=== PATIENT | female | born 1995 | race Caucasian/White ===

== ENCOUNTER 2018-10-01 10:10 | Inpatient (IN) | payer BC ==
[~2018-10-01] VITALS: Ht 162.6 cm; Wt 66.1 kg
[2018-10-01 10:37] VITALS: Ht 162.6 cm; Wt 66.1 kg
[2018-10-01 10:38] VITALS: BP 103/55; PULSE 94
[2018-10-01] MEDS ORDERED: PNV11TAB PO (10:40)
[2018-10-01] MEDS ORDERED: CARBOPROST 250 MCG INJ IM PRN ×2 (13:30→17:00)
[2018-10-01] MEDS ORDERED: METHYLERGONOVINE 0.2 MG INJ IM PRN ×2 (13:30→17:00)
[2018-10-01] MEDS ORDERED: MISOPROSTOL 200 MCG TAB PR PRN ×2 (13:30→17:00)
[2018-10-01] MEDS ORDERED: OXYTOCIN 30 UNITS/LR 500 ML IV PRN ×2 (13:30→17:00)
[2018-10-01] MEDS ORDERED: CEFAZOLIN 2 GM/50 ML (PMX) 50 ML IVPB SCH (13:30)
[2018-10-01] MEDS ORDERED: CITRIC ACID/NA CITRATE 30 ML CUP ONE (13:44)
[2018-10-01] MEDS ORDERED: ONDANSETRON 4 MG INJ ONE (13:45)
--- NOTE | 2018-10-01 13:48 | PERINOTE ---
Date/Time of Note Date/Time of Note DATE: 10/01/18 TIME: 13:46 OB Subjective Free Text/Dictaton Contacted by Dr. Neri regarding patient. Patient is with 24w5d gestation presenting with lower abdominal pain and found to be completely dilated and effaced with bulging membranes and fetus is in breech presentation with foot in vagina. Recommended to Dr. Neri that she proceed with delivery. Current Medications Current Medications Lactated Ringer's 1,000 ml @ 125 mls/hr Q8H IV ; Start 10/01/18 at 13:25 Cefazolin Sodium/ Dextrose 50 ml @ 100 mls/hr ONCE IVPB ; Start 10/01/18 at 13:30 Oxytocin/Lactated Ringer's 500 ml @ 0 mls/hr ONCE PRN IV .VAGINAL BLEEDING; Sta rt 10/01/18 at 13:30 Methylergonovine Maleate (Methergine) 0.2 mg ONCE PRN IM .VAGINAL BLEEDING; Sta rt 10/01/18 at 13:30 Carboprost Tromethamine (Hemabate) 250 mcg ONCE PRN IM .VAGINAL BLEEDING; Start 10/01/18 at 13:30 Misoprostol (Cytotec) 1,000 mcg ONCE PRN [place] .VAGINAL BLEEDING; Start 10/01/18 at 13:30 OB Admission Exam Physical Exam Vitals: Vital Signs Date Temp Pulse Resp B/P (MAP) Pulse Ox O2 O2 Flow FiO2 Time Delivery Rate 10/01/18 98.2 94 103/55 10:38 (71) Last 72 hours Lab Results CBC & BMP 10/01/18 11:37 Liver Function Test 10/01/18 11:37 Alanine Aminotransferase (ALT/SGPT) 19 Albumin 3.4 Alkaline Phosphatase 69 Aspartate Amino Transf (AST/SGOT) 14 L Direct Bilirubin 0.00 Total Protein 6.4 CONCHITA LOPEZ MD Oct 01, 2018 13:48
--- NOTE | 2018-10-01 13:48 | PREAC ---
Date/Time of Note Date/Time of Note DATE: 10/01/18 TIME: 13:46 Anesthesia Eval and Record Evaluation Time Pre-Procedure Interview DATE: 10/01/18 TIME: 13:46 Age 23 Sex female NPO: 6 hrs Preoperative diagnosis Premature labor, footling, GA:24 wk Planned procedure Past Medical History Past Medical History: Includes Heme: Anemia : : (2), Para: (0), Gestational age: (24) Surgery & Anesthesia Issues No known issue Meds Anticoagulation: No Beta Hola within 24 hr: No Reason Beta Hola not given: Pt. not on B-Hola Reported Medications [id number] ( 19) 1 Each Tablet, 1 TAB PO DAILY, TAB 10/01/18 Current Medications Lactated Ringer's 1,000 ml @ 125 mls/hr Q8H IV ; Start 10/01/18 at 13:25 Cefazolin Sodium/ Dextrose 50 ml @ 100 mls/hr ONCE IVPB ; Start 10/01/18 at 13:30 Oxytocin/Lactated Ringer's 500 ml @ 0 mls/hr ONCE PRN IV .VAGINAL BLEEDING; Start 10/01/18 at 13:30 Methylergonovine Maleate (Methergine) 0.2 mg ONCE PRN IM .VAGINAL BLEEDING; Start 10/01/18 at 13:30 Carboprost Tromethamine (Hemabate) 250 mcg ONCE PRN IM .VAGINAL BLEEDING; Start 10/01/18 at 13:30 Misoprostol (Cytotec) 1,000 mcg ONCE PRN [place] .VAGINAL BLEEDING; Start 10/01/18 at 13:30 Meds reviewed: Yes Allergies Coded Allergies: No Known Allergy (Unverified , 10/01/18) Allergies Reviewed: Yes Labs/Studies Labs Reviewed: Reviewed by anesthesiologist Result Diagram: 10/01/18 1137 10/01/18 1137 Laboratory Tests 10/01/18 11:37 test: Positive Studies: ECG (n/a), CXR (n/a) Pre-procedure Exam Last vitals Vital Signs Date Temp Pulse Resp B/P (MAP) Pulse Ox O2 O2 Flow FiO2 Time Delivery Rate 10/01/18 98.2 94 103/55 10:38 (71) Airway: Adequate mouth opening, Adequate thyromental dist Mallampati: Mallampati II Teeth: Normal Lung: Normal Heart: Normal ASA Physical Status ASA physical status: 2 Emergency: E Planned Anesthetic Neuraxial: Spinal Planned Pain Management Sub-arachniod narcotics, Parenteral pain med Pre-operative Attestations Prior to commencing anesthesia and surgery, the patient was re-evaluated, there was verification of: *The patient's identity *The results of appropriate recent lab work and preoperative vital signs *The above evaluation not changing prior to induction *Anesthetic plan, risk benefits, alternative and complications discussed with p atient/family; questions answered; patient/family understands, accepts and wishes to proceed. HU HOUSE MD Oct 01, 2018 13:48
[2018-10-01] MEDS: LACTATED RINGER'S 1,000 ML IV SCH ×2 (13:49→14:09)
[2018-10-01] MEDS ORDERED: OXYTOCIN 30 UNITS/LR 500 ML BAG IV ONE (13:50)
[2018-10-01] MEDS ORDERED: EPHEDrine 25 MG/5 ML SYG ONE (13:50)
[2018-10-01] MEDS ORDERED: PHENYLephrine (100 MCG/ML) 10ML SYG ONE (13:51)
[2018-10-01] MEDS ORDERED: morphine SULFATE/PF (10 MG/10 ML) INJ ONE (13:51)
[2018-10-01] MEDS ORDERED: OXYTOCIN 10 UNIT INJ ONE (13:51)
[2018-10-01] MEDS ORDERED: ONDANSETRON 4 MG INJ IV ONE (14:00)
[2018-10-01] MEDS ORDERED: CITRIC ACID/NA CITRATE 30 ML CUP PO ONE (14:00)
[2018-10-01] MEDS ORDERED: METOCLOPRAMIDE 10 MG INJ ONE (15:01)
[2018-10-01] MEDS ORDERED: DEXAMETHASONE 4 MG/ML 1 ML INJ ONE (15:01)
[2018-10-01] MEDS ORDERED: KETOROLAC 30 MG INJ ONE (15:01)
[2018-10-01] MEDS ORDERED: KETOROLAC 30 MG INJ IV PRN (15:30)
[2018-10-01] MEDS ORDERED: NALBUPHINE HCL (10 MG/1 ML) INJ IV PRN (15:30)
[2018-10-01] MEDS ORDERED: EPHEDrine 25 MG/5 ML SYG IV PRN (15:30)
[2018-10-01] MEDS ORDERED: DIPHENHYDRAMINE 50 MG INJ IV PRN ×2 (15:30)
[2018-10-01] MEDS ORDERED: ACETAMINOPHEN 500 MG TAB PO PRN (15:30)
[2018-10-01] MEDS ORDERED: HYDROmorphONE 0.5 MG/0.5 ML SYG IV PRN ×2 (15:30)
[2018-10-01] MEDS ORDERED: METOCLOPRAMIDE 10 MG INJ IV PRN (15:30)
[2018-10-01] MEDS ORDERED: NALOXONE (0.4 MG/ML) INJ IV PRN (15:30)
[2018-10-01] MEDS ORDERED: FENTAnyl 50 MCG/ML VIAL IV PRN ×2 (15:30)
[2018-10-01] MEDS ORDERED: HYDROmorphONE 1 MG/5 ML IV SYRINGE IV PRN ×2 (15:30)
[2018-10-01] MEDS ORDERED: morphine 2 MG INJ IV PRN ×2 (15:30)
[2018-10-01] MEDS ORDERED: OXYCODONE/ACETAMINOPHEN (5/325) TAB PO PRN (15:30)
[2018-10-01] MEDS ORDERED: HYDROCODONE/APAP (5/325) TAB PO PRN (15:30)
[2018-10-01] MEDS ORDERED: MEPERIDINE 25 MG INJ IV PRN (15:30)
[2018-10-01] MEDS ORDERED: ONDANSETRON 4 MG INJ IV PRN ×2 (15:30)
--- NOTE | 2018-10-01 16:18 | PREOPHP ---
DATE OF ADMISSION: 10/01/2018 HISTORY OF PRESENT ILLNESS: This is a 23-year-old lady, 2, para 0, EDC of 01/14/2019 at 24 a nd 5/7 weeks, admitted to labor and delivery area because of lower abdominal pain. [facility] and the care was uneventful. PAST PERSONAL HISTORY: No history of diabetes, TB, asthma. ALLERGIES: NO ALLERGIES. SOCIAL HISTORY: The patient does not smoke. She does not drink. MEDICATIONS: She does not take any drugs except her: 1. Iron. 2. Vitamins. GYNECOLOGIC HISTORY: She had menarche at the age of 12, every 28 days interval, 3 to 4 days duration and moderate in amount. FAMILY HISTORY: Noncontributory. OBSTETRICAL HISTORY: She is 2, para 0. She had 1 , first trimester in 2016. REVIEW OF SYSTEMS: CARDIOVASCULAR: No chest pains. RESPIRATORY: No cough. GASTROINTESTINAL: No diarrhea. No vomiting. GENITOURINARY: No dysuria. PHYSICAL EXAMINATION: GENERAL: Reveals a conscious, coherent lady and in no acute distress. VITAL SIGNS: Her blood pressure 100/70, pulse rate 80 per minute, respirations 16 per minute. BREASTS, HEART AND LUNGS: Within normal limits. ABDOMEN: Soft. Fundic height is 24 cm. heart tones are 140 per minute and on the right upper quadrant of the abdomen. PELVIC: Revealed the cervix to be completely dilated with a foot in the vagina. Bag of water was bu lging. EXTREMITIES: No pedal edema. ADMITTING DIAGNOSIS: A 24 and 5/7 weeks intrauterine in active labor. The ultrasound showed footling breech with a completely dilated cervix and Dr. Capone was consulted abo ut the patient. Dr. Capone advised the patient to have as soon as possible. The procedures were explained to the patient and to her partner and both understood everything totally. The risks, benefits and alternatives were discussed with them as well. Dictated By: ERICA CALLAHAN/MARIANO Conf#: [id number] DID#: [id number]
[2018-10-01] MEDS ORDERED: LACTATED RINGER'S 1,000 ML IV SCH (16:40)
[2018-10-01] MEDS ORDERED: OXYTOCIN 30 UNITS/LR 500 ML IV SCH (16:40)
--- NOTE | 2018-10-01 16:40 | OPPN ---
Date/Time of Note Date/Time of Note DATE: 10/01/18 TIME: 16:34 Operative Report Planned Procedure Procedure date Oct 01, 2018 Procedure(s) primary Performed by see signature line Padded Products Inspector Trimmer: NIKOLAY KEEN MD 2nd Padded Products Inspector Trimmer none Pre-procedure diagnosis 24weeks and 5/7 foothling breech [id number] Anesthesia Type: [id number] spinal Post-Procedure Post-procedure diagnosis 24weeks and 5/7 foothling breech hand presentation cord around the neckx 3 Findings Live girl. Estimated Blood Loss: 500 - 600 mls Specimen(s) placenta Grafts/Implant(s) none Complication(s) none ERICA CALL MD Oct 01, 2018 16:40
[2018-10-01] MEDS ORDERED: METHYLERGONOVINE 0.2 MG TAB PO PRN (17:00)
[2018-10-01] MEDS ORDERED: LANOLIN HPA 1 PKT TOP PRN (17:00)
[2018-10-01 18:30] VITALS: BP 112/66; PULSE 108; RESP 18
[2018-10-01 20:00] VITALS: BP 103/63; PULSE 101; RESP 18
[2018-10-01] MEDS: SENNA/DOCUSATE NA (8.6MG/50MG) TAB PO SCH (21:25)
--- NOTE | 2018-10-01 22:57 | OPR ---
DATE OF OPERATION: 10/01/2018 PREOPERATIVE DIAGNOSIS: A 24 and 5/7 weeks intrauterine in active labor, footling breech p resentation. POSTOPERATIVE DIAGNOSIS: A 24 and 5/7 weeks intrauterine in active labor, footling breech presentation, plus hand presentation. SURGEON: Erica Neri M.D. CARGO WORKER: Dr. Jaquez ANESTHESIA: Spinal. ANESTHESIOLOGIST: Alexi Hernández M.D. OPERATION PERFORMED: Primary low transverse section and a primary low transverse s ection, complete breech extraction and delivery. OPERATIVE TECHNIQUE: Under spinal anesthesia, the patient was prepped and draped in the usual fashio n for abdominal surgery. After checking for the effect of the anesthesia, Pfannenstiel incision, 10 cm skin incision was performed. The incision was carried from the skin up to the fascia. Upon openi ng the skin up to the fascia, the small blood vessels were noted to be oozing and these were all caut erized. Fascia was opened transversely followed by splitting the muscles vertically and the peritone al vertically. Upon opening the abdominal cavity, the lower uterine segment was noted to be seen and stretched out. So at this point, it was decided even the EDC is 24 and 5/7 week because the lower u terine segment was thinned out, so a transverse incision was performed on the uterus so an incision w as performed from the serosa up to the endometrium on the lower uterine segment and the zi was mack ied sideways with the aid of my 2 fingers. As soon as the abdomen was opened, the placenta was noted to be anterior. So I was cutting through the placenta as well. Then my left hand was inserted in t he lower segment of the uterus and the bag of water was ruptured. Both hands and feet were noted to be coming out, but the groin were noted to be presenting. So, both hands and feet were noted and wit h good fundal pressure, the baby was delivered with the hand and the feet together and by putting my finger inside the uterus delivered the baby's head without difficulty. Then, after the baby was born , the baby's cord was clamped right away and baby was handed to the NICU team. Cord segment was obta ined for blood gases. Then, cord blood was tried to be obtained, but there was none noted. Then the placenta was delivered manually and complete. The uterus was exteriorized. The uterus was cleansed with wet lap sponge to make sure that no membranes were left behind. After correct sponge cou nt, the uterus was closed in the usual fashion using #1 chromic for the first layer, continuous locki ng suture was used followed by #1 chromic for the second layer, imbricating sutures were used. Bleed ers were checked, and there was no bleeding noted. After checking for any bleeders in which there we re none, both tubes and ovaries were inspected. They were healthy looking. The back of the uterus w as checked for any hematoma and there was none noted. The uterus was put back to the pelvic cavity. Once again, uterine incision was checked for any bleeders and there was no bleeding noted. After co rrect sponge count, needle count and instrument count as confirmed by the contract technical writer and rubber washer, the abdomen was closed in the usual fashion using 0 Vicryl for the peritoneum, 0 Vicryl for the muscl es, for the fascia 0 Vicryl continuous stitch was used followed by few [id number] sutures for th e subcutaneous tissue, it was closed with 3-0 Vicryl and the skin was closed with 3-0 Vicryl, subcuti cular suture was used. The patient tolerated the procedure well. Estimated blood loss about 600 mL. Vital signs were stable during and after the procedure. She delivered a baby girl at 1440 p.m. , weighing 810 grams, 1 pound 10 ounces, Apgars 3, 6, and 9. There were 3 loops of tight cord around the baby's neck that needs to be released after the baby was delivered. As mentioned, the lo wer uterine segment was noted to be thinned out. Dictated By: ERICA CALLAHAN/MARIANO Conf#: [id number] DID#: [id number]
[2018-10-02] VITALS: BP 100/59; PULSE 83; RESP 18
[2018-10-02 04:00] VITALS: BP 90/54; PULSE 81; RESP 18
[2018-10-02 07:50] VITALS: BP 87/54; PULSE 85; RESP 17
[2018-10-02] MEDS ORDERED: LACTATED RINGER'S 1,000 ML IV SCH (08:00)
[2018-10-02] MEDS: SENNA/DOCUSATE NA (8.6MG/50MG) TAB PO SCH ×2 (08:49→23:40)
[2018-10-02] MEDS ORDERED: HYDROCODONE/APAP (5/325) TAB PO PRN (09:30)
[2018-10-02] MEDS: IBUPROFEN 800 MG TAB PO PRN ×2 (14:54→23:40)
[2018-10-02 16:01] VITALS: BP 95/52; PULSE 96; RESP 18
--- NOTE | 2018-10-02 18:38 | PN ---
Date/Time of Note Date/Time of Note DATE: 10/02/18 TIME: 18:36 Assessment/Plan VTE Prophylaxis Risk score (from Ns)>0 risk: 3 SCD applied (from [facility] [place]): No SCD contraindicated: low risk/ambulating Pharmacological prophylaxis: NA/contraindicated Pharm contraindication: low risk/ambulating Lines/Catheters IV Catheter Type (from Rust): Peripheral IV Assessment/Plan Assessment/Plan POSTCSECTION DAY 1 ORDERED ADVANCE DIET TOLERATED CBC ON 3RD POSTOP DAY Result Diagram: 10/02/18 0557 10/02/18 0557 Results 24hrs Laboratory Tests Test 10/02/18 05:57 10/02/18 06:24 White Blood Count 17.8 #H Red Blood Count 3.57 L Hemoglobin 11.6 L Hematocrit 33.9 L Mean Corpuscular Volume 95.0 Mean Corpuscular Hemoglobin 32.5 Mean Corpuscular Hemoglobin Concent 34.2 Red Cell Distribution Width 11.9 Platelet Count 186 Mean Platelet Volume 9.9 Immature Granulocytes % 0.400 Neutrophils % 81.1 H Lymphocytes % 12.0 L Monocytes % 6.2 Eosinophils % 0.1 Basophils % 0.2 Nucleated Red Blood Cells % 0.0 Immature Granulocytes # 0.070 H Neutrophils # 14.4 H Lymphocytes # 2.1 Monocytes # 1.1 H Eosinophils # 0.0 Basophils # 0.0 Nucleated Red Blood Cells # 0.0 Sodium Level 135 Potassium Level 4.4 Chloride Level 105 Carbon Dioxide Level 25 Anion Gap 5 Blood Urea Nitrogen 7 Creatinine 0.51 Est Glomerular Filtrat Rate mL/min > 60 Glucose Level 80 Calcium Level 8.8 Lab Scanned Report REFERENCE LAB Subjective 24 Hr Interval Summary Free Text/Dictation POST CSECTION DAY 1 COMPLAIN OF INCISIONAL PAINS GOOD URINE OUTPUT PASSING GAS PER RECTUM NO BOWEL MOVEMENT YET Exam/Review of Systems Exam Vitals Vital Signs Date Temp Pulse Resp B/P (MAP) Pulse Ox O2 O2 Flow FiO2 Time Delivery Rate 10/02/18 98.0 96 18 95/52 (66) Room Air 16:01 10/02/18 100 07:50 Intake and Output 10/01/18 10/01/18 10/02/18 1515:00 23:00 07:00 IntakeIntake Total 1000 ml 650 ml OutputOutput Total 450 ml 600 ml BalanceBalance 1000 ml 200 ml -600 ml Exam VITAL SIGNS STABLE: YES AFEBRILE: YES BREAST NOT ENGORGED, NON-TENDER, NO APPRECIABLE MASS: YES LUNGS CLEAR, NO RALES, WHEEZES, RHONCHI: YES SINUS RHYTHM WITHOUT MURMUR: YES ABDOMEN: NON-TENDER FUNDUS: BELOW UMBILICUS BOWEL SOUNDS: PRESENT UTERUS: FIRM INCISION (CLEAN, DRY, AND INTACT): YES LOCHIA: LIGHT DEEP TENDON REFLEXES: 0 EXTREMITIES: NO CALF TENDERNESS EDEMA SCALE: NONE Results Results 24hrs Laboratory Tests Test 10/02/18 05:57 10/02/18 06:24 White Blood Count 17.8 #H Red Blood Count 3.57 L Hemoglobin 11.6 L Hematocrit 33.9 L Mean Corpuscular Volume 95.0 Mean Corpuscular Hemoglobin 32.5 Mean Corpuscular Hemoglobin Concent 34.2 Red Cell Distribution Width 11.9 Platelet Count 186 Mean Platelet Volume 9.9 Immature Granulocytes % 0.400 Neutrophils % 81.1 H Lymphocytes % 12.0 L Monocytes % 6.2 Eosinophils % 0.1 Basophils % 0.2 Nucleated Red Blood Cells % 0.0 Immature Granulocytes # 0.070 H Neutrophils # 14.4 H Lymphocytes # 2.1 Monocytes # 1.1 H Eosinophils # 0.0 Basophils # 0.0 Nucleated Red Blood Cells # 0.0 Sodium Level 135 Potassium Level 4.4 Chloride Level 105 Carbon Dioxide Level 25 Anion Gap 5 Blood Urea Nitrogen 7 Creatinine 0.51 Est Glomerular Filtrat Rate mL/min > 60 Glucose Level 80 Calcium Level 8.8 Lab Scanned Report REFERENCE LAB Medications Medication Current Medications Methylergonovine Maleate (Methergine) 0.2 mg Q6H PRN PO .VAGINAL BLEEDING; Start 10/01/18 at 17:00 Simethicone (Mylicon) 160 mg Q8H PRN PO .GAS; Start 10/01/18 at 17:00 Senna/Docusate Sodium (Senokot-S) 1 tab BID PO Last administered on 10/02/18at 08:49; Admin Dose 1 TAB; Start 10/01/18 at 21:00 Lanolin (Lanolin Hpa) 1 applic BEDSIDE MEDICATION PRN TOP .NIPPLES Last administered on 10/02/18at 17:30; Admin Dose 1 APPLIC; Start 10/01/18 at 17:00 Oxytocin/Lactated Ringer's 500 ml @ 0 mls/hr ONCE PRN IV .VAGINAL BLEEDING; Start 10/01/18 at 17:00 Methylergonovine Maleate (Methergine) 0.2 mg ONCE PRN IM .VAGINAL BLEEDING; Start 10/01/18 at 17:00 Carboprost Tromethamine (Hemabate) 250 mcg ONCE PRN IM .VAGINAL BLEEDING; Start 10/01/18 at 17:00 Misoprostol (Cytotec) 1,000 mcg ONCE PRN [place] .VAGINAL BLEEDING; Start 10/01/18 at 17:00 Ibuprofen (Motrin) 800 mg Q6H PRN PO MILD PAIN LEVEL 1-3 Last administered on 10/02/18at 14:54; Admin Dose 800 MG; Start 10/02/18 at 09:30 Acetaminophen/ Hydrocodone Bitart ([place] (5/325)) 1 tab Q4H PRN PO MODERATE PAIN LEVEL 4-6; Start 10/02/18 at 09:30 Acetaminophen/ Hydrocodone Bitart ([place] (5/325)) 2 tab Q4H PRN PO SEVERE PAIN LEVEL 7-10; Start 10/02/18 at 09:30 ERICA CALL MD Oct 02, 2018 18:38
[2018-10-02] MEDS: HYDROCODONE/APAP (5/325) TAB PO PRN (19:29)
[2018-10-02 19:50] VITALS: BP 107/60; PULSE 92; RESP 18
[2018-10-03 04:15] VITALS: BP 92/57; PULSE 70; RESP 18
[2018-10-03] MEDS: HYDROCODONE/APAP (5/325) TAB PO PRN (04:57)
[2018-10-03 07:30] VITALS: BP 89/51; PULSE 74; RESP 17
[2018-10-03] MEDS: SENNA/DOCUSATE NA (8.6MG/50MG) TAB PO SCH ×2 (09:12→21:00)
[2018-10-03] MEDS: IBUPROFEN 800 MG TAB PO PRN ×3 (11:37→23:29)
[2018-10-03] MEDS: MAGNESIUM HYDROXIDE 30ML CUP PO SCH ×2 (13:51→21:00)
[2018-10-03] MEDS: BISACODYL 10 MG SUPP PR SCH ×2 (13:51→21:00)
[2018-10-03 15:30] VITALS: BP 100/69; PULSE 78; RESP 18
--- NOTE | 2018-10-03 16:52 | PN ---
Date/Time of Note Date/Time of Note DATE: 10/03/18 TIME: 16:50 Assessment/Plan VTE Prophylaxis Risk score (from Nsg)>0 risk: 3 SCD applied (from Nsg): No SCD contraindicated: low risk/ambulating Pharmacological prophylaxis: NA/contraindicated Pharm contraindication: low risk/ambulating Lines/Catheters IV Catheter Type (from Nrsg): Peripheral IV Assessment/Plan Assessment/Plan POST CSECTION DAY 2 MOM AND DULCOLAX SUPPOSITORY HOME TOMORROW CBC TOMORROW COUNSELED INSTRUCTED PRESCRIPTION GIVEN FOR PAIN RETURN TO CLINIC IN 2 WEEKS CALL OFFICE IF THERE IS ANY PROBLEM OR CONCERN CONTINUE WITH VITAMINS OD AND FERROUS SULFATE 325MG PO TID DIET ADVISED Result Diagram: 10/02/18 0557 10/02/1857 Subjective 24 Hr Interval Summary Free Text/Dictation POST CSECTION DAY 2 NO BOWEL MOVEMENT GOOD URINE OUTPUT FEELS LESS INCISIONAL PAINS Exam/Review of Systems Exam Vitals Vital Signs Date Temp Pulse Resp B/P (MAP) Pulse Ox O2 O2 Flow FiO2 Time Delivery Rate 10/03/18 98.0 78 18 100/69 15:30 (79) 10/03/18 Room Air 07:30 10/02/18 100 07:50 Intake and Output 10/02/18 10/02/18 10/03/18 1515:00 23:00 07:00 IntakeIntake Total 2600 ml OutputOutput Total 2700 ml 650 ml BalanceBalance -100 ml -650 ml Exam VITAL SIGNS STABLE: YES AFEBRILE: YES BREAST NOT ENGORGED, NON-TENDER, NO APPRECIABLE MASS: YES LUNGS CLEAR, NO RALES, WHEEZES, RHONCHI: YES SINUS RHYTHM WITHOUT MURMUR: YES ABDOMEN: NON-TENDER FUNDUS: BELOW UMBILICUS BOWEL SOUNDS: PRESENT UTERUS: FIRM INCISION (CLEAN, DRY, AND INTACT): YES LOCHIA: LIGHT DEEP TENDON REFLEXES: 0 EXTREMITIES: NO CALF TENDERNESS EDEMA SCALE: NONE Medications Medication Current Medications Methylergonovine Maleate (Methergine) 0.2 mg Q6H PRN PO .VAGINAL BLEEDING; Start 10/01/18 at 17:00 Simethicone (Mylicon) 160 mg Q8H PRN PO .GAS; Start 10/01/18 at 17:00 Senna/Docusate Sodium (Senokot-S) 1 tab BID PO Last administered on 10/03/18 09:12; Admin Dose 1 TAB; Start 10/01/18 at 21:00 Lanolin (Lanolin Hpa) 1 applic BEDSIDE MEDICATION PRN [place] .NIPPLES Last administered on 10/02/18at 17:30; Admin Dose 1 APPLIC; Start 10/01/18 at 17:00 Oxytocin/Lactated Ringer's 500 ml @ 0 mls/hr ONCE PRN IV .VAGINAL BLEEDING; Start 10/01/18 at 17:00 Methylergonovine Maleate (Methergine) 0.2 mg ONCE PRN IM .VAGINAL BLEEDING; Start 10/01/18 at 17:00 Carboprost Tromethamine (Hemabate) 250 mcg ONCE PRN IM .VAGINAL BLEEDING; Start 10/01/18 at 17:00 Misoprostol (Cytotec) 1,000 mcg ONCE PRN [place] .VAGINAL BLEEDING; Start 10/01/18 at 17:00 Ibuprofen (Motrin) 800 mg Q6H PRN PO MILD PAIN LEVEL 1-3 Last administered on 10/03/18at 11:37; Admin Dose 800 MG; Start 10/02/18 at 09:30 Acetaminophen/ Hydrocodone Bitart ([place] (5/325)) 1 tab Q4H PRN PO MODERATE PAIN LEVEL 4-6 Last administered on 10/03/18 04:57; Admin Dose 1 TAB; Start 10/02/18 at 09:30 Acetaminophen/ Hydrocodone Bitart ([place] (5/325)) 2 tab Q4H PRN PO SEVERE PAIN LEVEL 7-10; Start 10/02/18 at 09:30 Magnesium Hydroxide (Milk Of Mag) 30 ml BID PO Last administered on 10/03/18 13:51; Admin Dose 30 ML; Start 10/03/18 at 14:00; Stop 10/03/18 at 21:01 Bisacodyl (Dulcolax Supp) 10 mg BID [place] Last administered on 10/03/18 13:51; Admin Dose 10 MG; Start 10/03/18 at 14:00; Stop 10/03/18 at 21:01 ERICA CALL MD Oct 03, 2018 16:52
[2018-10-03 19:30] VITALS: BP 114/54; PULSE 91; RESP 18
[2018-10-04 04:21] VITALS: BP 91/55; PULSE 69; RESP 17
[2018-10-04] MEDS: IBUPROFEN 800 MG TAB PO PRN ×2 (06:11→15:46)
[2018-10-04] MEDS: SENNA/DOCUSATE NA (8.6MG/50MG) TAB PO SCH (08:09)
[2018-10-04 08:28] VITALS: BP 99/63; PULSE 85; RESP 17
[2018-10-04] MEDS ORDERED: DIPHTH/TET/ACEL PERTUSS (ADULT) 0.5 ML VIAL IM* ONE (09:00)
[2018-10-04] MEDS ORDERED: MEASLES,MUMPS,RUBELLA VACCINE INJ SC* ONE (09:00)
[2018-10-04 15:50] VITALS: BP 113/76; PULSE 78; RESP 18
--- NOTE | 2018-10-05 17:49 | DELSUM ---
Delivery Summary A-C Datetime Report Generated by CPN: 10/05/2018 17:49 DELIVERY PERSONNEL Extract Wringer: Renata Vazquez MATERNAL INFORMATION Delivery Anesthesia: Spinal Medications in Delivery: 30 UNITS OF PIT IN 500 CC LR Delivery QBL (ml): 500 Placenta Cultured: Yes Maternal Complications: Other Other Maternal Complications: Dr. Sams (roll edge machine operator) Dominic Mora RN, RN Comments: 24.5 CAME IN COMPLETE LABOR SUMMARY EDC: 01/16/2019 00:00 No. Babies in Womb: 1 Attempted: No Labor Anesthesia: None LABOR INFORMATION Reason for Induction: Not Applicable Group B Beta Strep: Positive Antibiotics # of Doses: ancef 2 grams/Zithromax Antibiotics Time of Last Dose: 10/01/2018 14:02 Steroids Given: None Reason Steroids Not Administered: Not Applicable MEMBRANES Membranes Rupture Method: Artificial Rupture of Membranes: 10/01/2018 14:38 Length of Rupture (hr): 0.03 Amniotic Fluid Color: Clear Amniotic Fluid Amount: Moderate Amniotic Fluid Odor: None STAGES OF LABOR Stage 3 hr: 0 Stage 3 min: 2 CSECTION DELIVERY Primary Indication: Breech Presentation Secondary Indication: N/A CSection Urgency: Emergency CSection Incidence: Primary Labor: Labor Elective: Nonelective CSection Incision: Lower Uterine Transverse BABY A INFORMATION Infant Delivery Date/Time: 10/01/2018 14:40 Method of Delivery: Born in Route : No : N/A Forceps: N/A Vacuum Extraction: N/A Shoulder Dystocia : N/A SHOULDER DYSTOCIA BABY A Infant Delivery Date/Time: 10/01/2018 14:40 PRESENTATION/POSITION BABY A Presentation: Breech Cephalic Presentation: N/A Breech Presentation: Double Footling PLACENTA INFORMATION BABY A Placenta Delivery Time : 10/01/2018 14:42 Placenta Method of Delivery: Manual Removal Placenta Status: Delivered SCORES BABY A Heart Rate 1 min: >100 bpm Resp Effort 1 min: Absent Reflex Irritability 1 min: No Response Muscle Tone 1 min: Some Flexion of Extrem Color 1 min: Blue/Pale Resuscitation Effort 1 min: PPV/NCPAP SCORE 1 MIN: 3 Heart Rate 5 min: >100 bpm Resp Effort 5 min: Slow, Irregular Reflex Irritability 5 min: Grimace Muscle Tone 5 min: Some Flexion of Extrem Color 5 min: Body [place], Extremit Blue Resuscitation Effort 5 min: PPV/NCPAP; Endotracheal Intubation; Chemical Resuscitation SCORE 5 MIN: 6 INFORMATION BABY A Gestational Age at Delivery: 24.5 Gestational Status: - <34 Weeks Infant Outcome : Liveborn, with signs of life Condition : Stable Infant Sex: Female IDENTIFICATION/MEDS BABY A ID Band Number: [id number] ID Band Location: Other Sensor Applied: N/A Vitamin K Given : Not Given Erythromycin Given: Not Given WEIGHT/LENGTH BABY A Infant Birthweight (gm): 810 Weight (lb): 1 Weight (oz): 13 Length (in): 12.75 Infant Length (cm): 32.39 CORD INFORMATION BABY A No. Cord Vessels: 3 Nuchal Cord : Around Neck x3, Tight Cord Blood Taken: No Suction: Mouth; Nose ASSESSMENT BABY A Infant Complications: Other Infant Complications- Other: 24.5 weeks care by NICU team see roll edge machine operator notes Physical Findings at Delivery: Other [employer] Integration Architect/ALS Called : Yes Care By: Dr. Marie, Cara RN, Kvng RT Transferred To: NICU
== END 2018-10-04 17:47 | disposition home or self-care (01) | DRG 788 ==
LOC: OBT 10:10 → L-D 10:11 → OBT 13:26 → L-D 13:27 → PP1 18:47
PROVIDERS: ADMIT Obstetrics & Gynecology; ATTEND Obstetrics & Gynecology
PROC: 10D00Z1 Extraction of Products of Conception, Low, Open Approach (ICD-10-PCS; principal; 2018-10-01 14:00)
DX: O60.14X0 Preterm labor third trimester with preterm delivery third trimester, not applicable or unspecified (principal); O32.8XX0 Maternal care for other malpresentation of fetus, not applicable or unspecified; Z3A.24 24 weeks gestation of pregnancy; Z37.0 Single live birth
CPT/HCPCS: 76815; 76817; 80048; 80053; 81003; 85025; 85610; 85730; 86592; 86850; 86900; 86901; 87086; 88305; G0463; J0690; J1100; J1885; J2274; J2370; J2405; J2590; J2765; J7120